=== PATIENT | female | born 1980 | race Caucasian/White ===

== ENCOUNTER 2018-03-20 13:36 | Inpatient (IN) | payer OTHER ==
[~2018-03-20] VITALS: Ht 152.4 cm; Wt 85.7 kg
[~2018-03-20 13:36] MED LIST: PRENATAL1 TAB PO
[2018-03-20] MEDS ORDERED: DIALYVITE 800-1 EACH PO (18:00)
[2018-03-20] MEDS ORDERED: HUMULIN N100 UNIT/2 SUBCUTANEO (18:02)
== END 2018-03-22 14:02 | disposition home or self-care (01) | DRG 775 ==
LOC: OBS/DEL 13:36 → LDR 16:48 → OBS/DEL 16:48 → OB/GYN 16:48
PROC: BY4FZZZ Ultrasonography of Third Trimester, Single Fetus (ICD-10-PCS; 2018-03-20)
PROC: 4A1HXCZ Monitoring of Products of Conception, Cardiac Rate, External Approach (ICD-10-PCS; 2018-03-20)
PROC: 10E0XZZ Delivery of Products of Conception, External Approach (ICD-10-PCS; principal; 2018-03-21)
PROC: 3E0P7VZ Introduction of Hormone into Female Reproductive, Via Natural or Artificial Opening (ICD-10-PCS; 2018-03-21)
PROC: 3E033VJ Introduction of Other Hormone into Peripheral Vein, Percutaneous Approach (ICD-10-PCS; 2018-03-21)
DX: O36.4XX0 Maternal care for intrauterine death, not applicable or unspecified (principal); Z3A.30 30 weeks gestation of pregnancy; Z37.1 Single stillbirth

== ENCOUNTER 2018-05-10 07:59 | Day surgery (SDC) | payer OTHER ==
[~2018-05-10 07:59] MED LIST changes: +DIALYVITE 800-1 EACH PO; +HUMULIN N100 UNIT/2 SUBCUTANEO
[2018-05-10] MEDS ORDERED: PERCOCET 5-3251 EACH PO (12:28)
== END 2018-05-10 14:10 | disposition home or self-care (01) ==
LOC: CIR.AMB 07:59
DX: Z30.2 Encounter for sterilization (principal)

== ENCOUNTER 2023-02-13 21:04 | Emergency (ER) | payer OTHER ==
[~2023-02-13] VITALS: Ht 152.4 cm; Wt 81.6 kg
[~2023-02-13 21:04] MED LIST changes: +PERCOCET 5-3251 EACH PO
[2023-02-13] MEDS ORDERED: SYMBICORT 16010.2 GM (21:49)
[2023-02-13] MEDS ORDERED: CLARITHROMYCIN500 M1 PO (21:50)
== END 2023-02-14 01:05 | disposition home or self-care (01) ==
LOC: ER 21:04
DX: R53.81 Other malaise (principal); R10.2 Pelvic and perineal pain; Z88.6 Allergy status to analgesic agent; Z91.013 Allergy to seafood